=== PATIENT | male | born 1940 | race Caucasian/White ===

== ENCOUNTER 2017-01-29 07:20 | Day surgery (SDC) | payer OTHER ==
[~2017-01-29] VITALS: Ht 188 cm; Wt 114.0 kg
[~2017-01-29 07:20] MED LIST: AMLODIPINE BES2.5 MG PO; AMLODIPINE BESYL5 MG PO; ASPIR 8181 M1 PO; ASPIR-LOW81 MG PO; ASPIRIN EC325 MG PO; AUGMENTIN875 MG PO; Aspirin EC PO; BRILINTA90 MG PO; CENTRUM SILVER1 EAC3 PO; COZAAR100 MG PO; CRESTOR10 MG PO; DOXAZOSIN MESYLA1 MG PO; IMDUR30 MG PO; LIVALO4 MG PO; LOPRESSOR25 MG PO; LOSARTAN POTAS100 MG PO; Lopressor PO; MULTIVITAMIN1 EAC2 PO; NITROGLYCERIN0.4 MG SL; NITROSTAT0.4 MG SL; OMEPRAZOLE40 M1 PO; PANTOPRAZOLE SO40 MG PO; PLAVIX75 MG PO; PROTONIX40 MG PO; ROSUVASTATIN CA10 MG PO; TOPROL XL25 MG PO; TOPROL XL6.25 MG PO; Theragran PO; VITAMIN E400 UNIT PO
[2017-01-29 08:28] LABS: HEMATOCRIT 44.7 % (38.0-50.0); MCH 32.3 PG (29.0-34.0); MCHC 34.5 G/DL (30.0-36.0); MCV 93.7 FL (86-99); MEAN PLAT.VOLUME 9.6 uM^3 (9.0-12.4); PLATELET COUNT 206 K/uL (156-360); RBC DIS.WIDTH-CV 14.7 % (11.8-14.6); RBC DIS.WIDTH-SD 51.1 % (39-53); RED BLOOD COUNT 4.77 M/uL (4.00-5.50); WHITE BLOOD COUNT 11.2 K/uL (4.1-10.2)
[2017-01-29 15:31] VITALS: BP 153/81
[2017-01-29 19:49] VITALS: BP 154/74
[2017-01-30 00:12] VITALS: BP 122/66
[2017-01-30 01:27] VITALS: BP 110/71
[2017-01-30 04:33] VITALS: BP 130/69
[2017-01-30 05:33] LABS: EOSINOPHIL (%) 1.3 % (0-5); EOSINOPHIL COUNT 0.2 K/uL (0-0.3); HEMATOCRIT 38.8 % (38.0-50.0); IMMATURE GRANULOCYTE (%) 0.3 % (0.0-0.7); INSTRUMENT ABS NEUTROPHIL CT 8.4 K/uL; LYMPHOCYTE COUNT 2.4 K/uL (1.0-2.8); MCH 32.6 PG (29.0-34.0); MCHC 34.3 G/DL (30.0-36.0); MCV 95.1 FL (86-99); MONOCYTE (%) 6.5 % (3-12); MONOCYTE COUNT 0.8 K/uL (0-0.8); NEUTROPHIL (%) 71.4 % (45-76); NEUTROPHIL COUNT 8.4 K/uL (1.8-6.4); RBC DIS.WIDTH-CV 14.7 % (11.8-14.6); RBC DIS.WIDTH-SD 51.7 % (39-53); RED BLOOD COUNT 4.08 M/uL (4.00-5.50); WHITE BLOOD COUNT 11.8 K/uL (4.1-10.2)
[2017-01-30 05:44] LABS: ANION GAP 8 MEQ/L (2-14); CHLORIDE 105 MEQ/L (99-109); GFR ESTIMATE (CALCULATED) > 59 mL/min/; GLUCOSE 137 mg/dL (70-99); MEAN PLAT.VOLUME 10.2 uM^3 (9.0-12.4); PLAT.SUFFICIENCY DECREASED; POTASSIUM 3.5 MEQ/L (3.7-5.4); SAMPLE HEMOLYSIS CHECK 0; SAMPLE ICTERIC CHECK 0; SAMPLE LIPEMIA CHECK 0; SODIUM 137 MEQ/L (136-147); UREA NITROGEN (BUN) 19 mg/dL (9-23)
[2017-01-30 06:03] LABS: PLATELET COUNT 130 K/uL (156-360)
[2017-01-30 06:50] VITALS: BP 146/73
== END 2017-01-30 08:40 | disposition home or self-care (01) ==
LOC: CATH 07:20 → 4EAST 11:00 → 2SOUTH 11:00 → ENRESERV 13:21 → 4EAST 14:59
PROVIDERS: Internal Medicine Cardiovascular Disease
PROC: B2181ZZ Fluoroscopy of Left Internal Mammary Bypass Graft using Low Osmolar Contrast (ICD-10-PCS; principal; 2017-01-29)
PROC: B2111ZZ Fluoroscopy of Multiple Coronary Arteries using Low Osmolar Contrast (ICD-10-PCS; principal; 2017-01-29)
PROC: 027034Z Dilation of Coronary Artery, One Artery with Drug-eluting Intraluminal Device, Percutaneous Approach (ICD-10-PCS; principal; 2017-01-29)
PROC: 4A023N7 Measurement of Cardiac Sampling and Pressure, Left Heart, Percutaneous Approach (ICD-10-PCS; principal; 2017-01-29)
DX: I25.10 Atherosclerotic heart disease of native coronary artery without angina pectoris (principal); T82.858A Stenosis of other vascular prosthetic devices, implants and grafts, initial encounter; I10 Essential (primary) hypertension; I65.23 Occlusion and stenosis of bilateral carotid arteries; Z79.82 Long term (current) use of aspirin; Z95.1 Presence of aortocoronary bypass graft; E78.5 Hyperlipidemia, unspecified; E66.9 Obesity, unspecified; Z68.33 Body mass index [BMI] 33.0-33.9, adult; E04.1 Nontoxic single thyroid nodule
CPT/HCPCS: 80048; 85025; 85027; 85347; 93005; C1725; C1750; C1760; C1769; C1874; C1887; C1894; G0378; J0153; J1644; J2250; J2405; J2765; J3010; J3246; J7030

== ENCOUNTER 2017-09-23 22:08 | Observation (INO) | payer OTHER ==
[~2017-09-23] VITALS: Ht 188 cm; Wt 113.0 kg
[2017-09-23 23:07] LABS: BASOPHIL (%) 0.2 % (0-1); EOSINOPHIL COUNT 0.3 K/uL (0-0.3); HEMATOCRIT 42.5 % (38.0-50.0); HEMOGLOBIN 14.9 G/DL (12.5-16.6); IMMATURE GRANULOCYTE (%) 0.3 % (0.0-0.7); LYMPHOCYTE (%) 24.3 % (15-42); LYMPHOCYTE COUNT 2.6 K/uL (1.0-2.8); MCH 32.7 PG (29.0-34.0); MCHC 35.1 G/DL (30.0-36.0); MCV 93.4 FL (86-99); MONOCYTE (%) 7.6 % (3-12); MONOCYTE COUNT 0.8 K/uL (0-0.8); NEUTROPHIL (%) 64.6 % (45-76); NEUTROPHIL COUNT 6.9 K/uL (1.8-6.4); PLATELET COUNT 171 K/uL (156-360); RBC DIS.WIDTH-CV 14.5 % (11.8-14.6); RBC DIS.WIDTH-SD 50.3 % (39-53); RED BLOOD COUNT 4.55 M/uL (4.00-5.50); WHITE BLOOD COUNT 10.6 K/uL (4.1-10.2)
[2017-09-23 23:14] LABS: PTT 29.8 SEC (25-37)
[2017-09-23 23:21] LABS: CHLORIDE 106 mEq/L (99-109); POTASSIUM 4.2 mEq/L (3.7-5.4); SODIUM 138 mEq/L (136-147)
[2017-09-23 23:22] LABS: MAGNESIUM 2.4 mg/dL (1.3-2.7)
[2017-09-23 23:23] LABS: GLUCOSE 144 mg/dL (70-99)
[2017-09-23 23:27] LABS: CREATININE 1.3 mg/dL (0.6-1.3); GFR ESTIMATE (CALCULATED) 57 mL/min/ (58.99-99999)
[2017-09-23 23:28] LABS: UREA NITROGEN (BUN) 28 mg/dL (9-23)
[2017-09-23 23:29] LABS: TROP-I INTERPRETATION NEGATIVE; TROPONIN-I 0.09 ng/mL (0.0-0.30)
[2017-09-24] MEDS ORDERED: ROSUVASTATIN CA20 MG PO (00:11)
[2017-09-24] MEDS ORDERED: AMLODIPINE BESYL5 MG PO (00:11)
[2017-09-24] MEDS ORDERED: METOPROLOL SUCC25 MG PO (00:12)
[2017-09-24 01:46] VITALS: BP 175/98
[2017-09-24 07:15] LABS: TROP-I INTERPRETATION POSITIVE
[2017-09-24 09:00] VITALS: BP 165/97
[2017-09-24 11:45] LABS: INTER. NORMALIZED RATIO 1.1
[2017-09-24 13:30] LABS: TROP-I INTERPRETATION POSITIVE; TROPONIN-I 1.02 ng/mL (0.0-0.30)
== END 2017-09-24 21:35 | disposition home or self-care (01) ==
LOC: EME 22:08 → EDOF 09-24 00:59 → 4SOUTH 09-24 00:59 → EDOF 09-24 00:59 → ENRESERV 09-24 01:01 → 4SOUTH 09-24 01:43
PROVIDERS: Emergency Medicine; Hospitalist; Physician Assistant
PROC: B2131ZZ Fluoroscopy of Multiple Coronary Artery Bypass Grafts using Low Osmolar Contrast (ICD-10-PCS; principal; 2017-09-24)
PROC: 02703ZZ Dilation of Coronary Artery, One Artery, Percutaneous Approach (ICD-10-PCS; principal; 2017-09-24)
PROC: B2181ZZ Fluoroscopy of Left Internal Mammary Bypass Graft using Low Osmolar Contrast (ICD-10-PCS; principal; 2017-09-24)
PROC: 4A023N7 Measurement of Cardiac Sampling and Pressure, Left Heart, Percutaneous Approach (ICD-10-PCS; principal; 2017-09-24)
PROC: B2151ZZ Fluoroscopy of Left Heart using Low Osmolar Contrast (ICD-10-PCS; principal; 2017-09-24)
DX: I21.4 Non-ST elevation (NSTEMI) myocardial infarction (principal); I25.810 Atherosclerosis of coronary artery bypass graft(s) without angina pectoris; T82.858A Stenosis of other vascular prosthetic devices, implants and grafts, initial encounter; I12.9 Hypertensive chronic kidney disease with stage 1 through stage 4 chronic kidney disease, or unspecified chronic kidney disease; E11.22 Type 2 diabetes mellitus with diabetic chronic kidney disease; N18.9 Chronic kidney disease, unspecified; K21.9 Gastro-esophageal reflux disease without esophagitis; E78.5 Hyperlipidemia, unspecified; Z95.5 Presence of coronary angioplasty implant and graft; Z98.890 Other specified postprocedural states; Z90.49 Acquired absence of other specified parts of digestive tract; Z82.3 Family history of stroke; Z88.2 Allergy status to sulfonamides; Z79.02 Long term (current) use of antithrombotics/antiplatelets; Z79.82 Long term (current) use of aspirin
CPT/HCPCS: 71045; 80048; 83735; 84484; 85025; 85347; 85610; 85730; 93005; 94799; 99281; 99285; C1725; C1750; C1769; C1887; G0378; J1644; J1650; J2250; J3010; J7030